=== PATIENT | female | born 1935 | race Caucasian/White ===

== ENCOUNTER → 2017-03-11 | Outpatient (CLI) | payer MEDICARE, BC ==
[~2017-03-11] MED LIST: ASCO500 PO; ASPI81CH PO; Calcium 600 +1 EAC1 PO; Dicyclomine HCl10 MG PO; FERR325 PO; LEVSOD100 PO; MULVITMIND PO; OLME20-12. PO; OMEP20ER PO; Prilosec Otc20 MG PO; Senna Plus Tab1 EACH PO
[2017-03-11 10:46] LABS: Albumin, Blood 3.9 g/dL (3.4-5.0); Albumin/Globulin Ratio 1.3 (0.8-1.8); Bilirubin, Total 0.4 mg/dL (0.1-1.0); Bun/Creatinine Ratio 13.5 (12.0-20.0); Creatinine, Blood 1.26 mg/dL (0.40-1.00); Globulin, Blood 2.9 g/dL (2.2-4.0); Potassium, Blood 4.5 mmol/L (3.5-5.5); Total Protein, Blood 6.8 g/dL (6.4-8.2)
== END | disposition home or self-care (01) ==
LOC: LAB 09:56
PROVIDERS: Internal Medicine Hematology & Oncology
DX: M85.80 Other specified disorders of bone density and structure, unspecified site (principal); D50.9 Iron deficiency anemia, unspecified
CPT/HCPCS: 80053

== ENCOUNTER → 2017-07-25 | Outpatient (CLI) | payer MEDICARE, BC ==
[2017-07-25 14:34] LABS: Stool Occult Blood Guaiac 1 Neg (Neg); Stool Occult Blood Guaiac 2 Neg (Neg)
[2017-07-25 14:35] LABS: Stool Occult Blood Guaiac 3 Neg (Neg)
== END | disposition home or self-care (01) ==
LOC: OLS 09:22 → LAB SHORT 09:22
PROVIDERS: Internal Medicine
DX: D64.9 Anemia, unspecified (principal)
CPT/HCPCS: 82272

== ENCOUNTER → 2018-07-29 | Outpatient (CLI) | payer MEDICARE, BC ==
[2018-07-29 11:56] LABS: Bun/Creatinine Ratio 11.5 (12.0-20.0); Calcium, Blood 8.8 mg/dL (8.5-10.1); Creatinine, Blood 1.04 mg/dL (0.40-1.00); Potassium, Blood 4.6 mmol/L (3.5-5.5)
== END | disposition home or self-care (01) ==
LOC: LAB 11:17 → LAB SHORT 11:17
PROVIDERS: Internal Medicine Hematology & Oncology
DX: M81.0 Age-related osteoporosis without current pathological fracture (principal)
CPT/HCPCS: 80048

== ENCOUNTER → 2020-05-19 | Outpatient (CLI) | payer MEDICARE, BC ==
[~2020-05-19] MED LIST changes: +CLON.1 PO; +Felodipine ER5 MG PO
[2020-05-19 09:27] LABS: Source, Urine Clean Catch
[2020-05-19 10:23] LABS: Appearance, Urine Clear (Clear); Bilirubin, Urine Neg (Neg); Blood, Urine 1+ (Neg); Color, Urine Yellow (P-Yellow); Glucose Qualitative, Urine Neg (Neg); Ketones, Urine Neg (Neg); Leukocyte Esterase, Urine Neg (Neg); Nitrite, Urine Neg (Neg); Protein, Urine Neg (Neg); Urobilinogen, Urine NORM (Normal); pH, Urine 6.5 (5.0-8.0)
[2020-05-19 10:39] LABS: Bacteria Not Seen /hpf; Red Blood Cells, Urine 0-2 /hpf (0-2); Squamous Epithelial Cells Not Seen /hpf (Few); White Blood Cells, Urine 0-2 /hpf (0-5)
== END | disposition home or self-care (01) ==
LOC: LAB 09:26 → LAB SHORT 09:26
PROVIDERS: Internal Medicine
DX: N39.0 Urinary tract infection, site not specified (principal)
CPT/HCPCS: 81001